=== PATIENT | female | born 1970 | race African-American/Black ===

== ENCOUNTER 2016-09-07 07:42 | Emergency (ER) | payer OTHER ==
[~2016-09-07] VITALS: Ht 165.1 cm; Wt 77.1 kg
[~2016-09-07 07:42] MED LIST: ACCUNEB SO1.25 MG/1 INH; BREO ELLIPTA 11 EACH IH; CELEBREX 200 M200 M1; ELIQUIS5 MG PO; FEROSUL325 M1 PO; FLEXERIL PO; HYDROCHLOROTHIA25 M2 PO; LAMICTAL ODT200 MG PO; LEVAQUIN 750 M750 MG PO; LISINOPRIL10 MG PO; NEURONTIN600 MG PO; OPANA ER15 M1 PO; OPANA5 MG PO; OXYCONTIN30 MG PO; PERCOCET 10-321 EACH PO; PHENERGAN 25 MG25 M1 PO; PREDNISONE50 MG PO; PRINIVIL20 M1 PO; PROMS25 WY RECTAL; PROTONIX40 M1 PO; PROVERA10 MG PO; REGLAN 10 MG TA10 MG PO; SEROQUEL 25 MG25 M1 PO; SONATA10 MG PO; TESSALON PERLE100 MG PO; VENTOLIN HFA 1818 GM INH; WELLBUTRIN XL300 MG PO; XANAX 0.25 MG0.25 MG PO; ZANAFLEX4 MG PO
[2016-09-07] MEDS ORDERED: SEROQUEL 25 MG25 M1 PO (07:56)
[2016-09-07 08:32] LABS: HEMATOCRIT 27.4 % (37.0-47.0); HEMOGLOBIN 9.2 gm/dL (12.0-15.0); MANUAL DIFF YES; MCH 28.1 pg (26.0-34.0); MCHC 33.7 g/dL (28.0-37.0); MCV 83.4 fL (80.0-100.0); PLATELET COUNT 216 thou/uL (150-400); RBC 3.28 mil/uL (4.20-5.00); WBC 3.8 thou/uL (4.0-11.0)
[2016-09-07 08:38] LABS: CALCIUM 8.9 mg/dL (8.5-10.1); CREATININE 1.3 mg/dL (0.6-1.0); POTASSIUM 4.2 mmol/L (3.5-5.1)
[2016-09-07 08:49] LABS: ALBUMIN 3.4 g/dL (3.4-5.0); TOTAL BILIRUBIN 0.4 mg/dL (<0.1-1.0); TOTAL PROTEIN 6.7 g/dL (6.4-8.2)
[2016-09-07] MEDS ORDERED: LOPRESSOR50 PO (09:13)
[2016-09-07 09:41] LABS: ABSOLUTE NEUTROPHILS 1.2 thou/uL (1.4-8.2); ANISOCYTOSIS SLIGHT; TOTAL CELL COUNT 100
== END 2016-09-07 11:01 | disposition home or self-care (01) ==
LOC: ER 07:42
PROVIDERS: Emergency Medicine
DX: I95.9 Hypotension, unspecified (principal); G89.29 Other chronic pain; Z96.652 Presence of left artificial knee joint; Z86.711 Personal history of pulmonary embolism; Z88.8 Allergy status to other drugs, medicaments and biological substances; Z87.891 Personal history of nicotine dependence

== ENCOUNTER 2016-11-12 14:53 | Emergency (ER) | payer OTHER ==
[~2016-11-12] VITALS: Ht 162.6 cm; Wt 77.1 kg
--- NOTE | ~2016-11-12 | EKG ---
[place] [address] [address] [facility] [place] [address] ELECTROCARDIOGRAM REPORT Name: VIPUL ESPARZA [id number] Admission: 11/12/16 Attend Phys: Discharge: 11/12/16 Date of : 74 Report #: [id number] THIS REPORT FOR: //name// [facility] ED Test Date: 2016-11-12 Test Time: 15:02:51 Pat Name: VIPUL ESPARZA Department: Room: Gender: F Social Media Campaign Manager: unknown : 1970 Requested By: Ken Adler Order Number: [id number] MD: Adria Garcia Measurements Intervals [place] Rate: 92 P: 46 [place]: 152 QRS: -14 QRSD: 90 T: 26 QT: 350 QTc: 433 Interpretive Statements Sinus rhythm Probable left atrial enlargement Compared to ECG 02/04/2016 19:14:24 No significant changes Electronically Signed On 11-13-2016 8:02:51 CDT by Adria Garcia [email or web address] <ELECTRONICALLY SIGNED> By: Adria Garcia MD, [facility] 11/13/16 0802 1502 1502 Adria Garcia MD, FACC /EPI
[~2016-11-12 14:53] MED LIST changes: +LOPRESSOR50 PO
[2016-11-12] MEDS ORDERED: OPANA10 MG PO ×2 (16:30→16:32)
[2016-11-12] MEDS ORDERED: TRIAMTERENE-HC1 EAC2 PO (16:35)
[2016-11-12 16:48] LABS: HEMATOCRIT 28.1 % (37.0-47.0); HEMOGLOBIN 9.3 gm/dL (12.0-15.0); MCH 26.5 pg (26.0-34.0); MCHC 33.1 g/dL (28.0-37.0); MCV 80.1 fL (80.0-100.0); RBC 3.51 mil/uL (4.20-5.00); RDW 14.8 % (10.5-14.5); WBC 3.6 thou/uL (4.0-11.0)
[2016-11-12 16:58] LABS: ANION GAP 6 mmol/L (7-16); BUN 13 mg/dL (7-18); CALCIUM 8.8 mg/dL (8.5-10.1); CHLORIDE 101 mmol/L (98-107); CO2 30 mmol/L (21-32); CREATININE 1.3 mg/dL (0.6-1.0); GLUCOSE 100 mg/dL (74-106); POTASSIUM 3.7 mmol/L (3.5-5.1); SODIUM 137 mmol/L (136-145)
[2016-11-12 17:07] LABS: ALBUMIN 3.3 g/dL (3.4-5.0); ALKALINE PHOSPHATASE 91 U/L (46-116); SGOT 25 U/L (15-37); SGPT 24 U/L (30-65); TOTAL BILIRUBIN 0.2 mg/dL (<0.1-1.0); TOTAL PROTEIN 6.8 g/dL (6.4-8.2); TROPONIN-I < 0.04 ng/mL (<0.04-0.07)
[2016-11-12] MEDS ORDERED: MIRALAX17 GM PO (18:38)
[2016-11-12] MEDS ORDERED: SENNA S TABLET1 EACH PO (18:38)
== END 2016-11-12 19:09 | disposition home or self-care (01) ==
LOC: ER 14:53
PROVIDERS: Emergency Medicine
DX: K59.00 Constipation, unspecified (principal); Z88.8 Allergy status to other drugs, medicaments and biological substances; Z87.891 Personal history of nicotine dependence

== ENCOUNTER 2018-08-08 20:40 | Emergency (ER) | payer OTHER ==
[~2018-08-08] VITALS: Ht 162.6 cm; Wt 70.3 kg
[~2018-08-08 20:40] MED LIST changes: +MIRALAX17 GM PO; +OPANA10 MG PO; +SENNA S TABLET1 EACH PO; +TRIAMTERENE-HC1 EAC2 PO
[2018-08-08 22:09] LABS: ABSOLUTE NEUTROPHILS 2.6 thou/uL (1.4-8.2); BASOPHILS 1.1 % (0.0-2.0); HEMATOCRIT 31.2 % (37.0-47.0); HEMOGLOBIN 10.4 gm/dL (12.0-15.0); LYMPHOCYTES 30.8 % (24.0-44.0); MCH 28.1 pg (26.0-34.0); MCHC 33.4 g/dL (28.0-37.0); MCV 84.2 fL (80.0-100.0); MONOCYTES 11.2 % (1.0-8.0); PLATELET COUNT 202 thou/uL (150-400); POLYS 52.9 % (36.0-66.0); RDW 15.9 % (10.5-14.5); WBC 4.9 thou/uL (4.0-11.0)
[2018-08-08 22:17] LABS: ANION GAP 8 mmol/L (7-16); BUN 13 mg/dL (7-18); CALCIUM 9.3 mg/dL (8.5-10.1); CHLORIDE 109 mmol/L (98-107); CO2 29 mmol/L (21-32); CREATININE 0.7 mg/dL (0.6-1.0); GLUCOSE 79 mg/dL (74-106); SODIUM 146 mmol/L (136-145)
[2018-08-08 22:23] LABS: APTT 27.1 Seconds (24.5-32.8); INR 1.1; PROTIME 11.2 Seconds (9.3-11.4)
[2018-08-08 22:26] LABS: TROPONIN-I <0.06 ng/mL (<0.06)
[2018-08-09] MEDS ORDERED: COMPAZINE10 MG PO (00:39)
[2018-08-09] MEDS ORDERED: ZOFRAN ODT4 MG PO (00:39)
[2018-08-09] MEDS ORDERED: CARAFATE1 GM/10 ML PO (00:39)
[2018-08-09 00:52] VITALS: BP 106/57
== END 2018-08-09 00:55 | disposition home or self-care (01) ==
LOC: ER 20:40
PROVIDERS: Emergency Medicine
DX: K29.70 Gastritis, unspecified, without bleeding (principal); G89.29 Other chronic pain; K21.9 Gastro-esophageal reflux disease without esophagitis; Z96.652 Presence of left artificial knee joint; Z87.01 Personal history of pneumonia (recurrent); Z87.891 Personal history of nicotine dependence; Z88.8 Allergy status to other drugs, medicaments and biological substances